=== PATIENT | female | born 1950 | race Caucasian/White ===

== ENCOUNTER 2024-11-27 05:28 | Day surgery (SDC) | payer MEDICARE, OTHER ==
[2024-11-20 14:13] LABS: LEUKOCYTE ESTERASE ,URINE SMALL (Neg); NITRITES, URINE POSITIVE (Neg); OCCULT BLOOD,URINE NEGATIVE (Neg)
[2024-11-20 14:14] LABS: UA COLLECTION TYPE CLN CATCH MIDSTREAM
[2024-11-20 14:15] LABS: MEAN PLATELET VOLUME 8.0 FL (7.4-10.4); PRE OP HEMATOCRIT 47.1 % (35.0-45.0); PRE OP HEMOGLOBIN 15.9 g/dL (12.0-16.0); PRE OP PLATELET COUNT 470 X10'3 (140-440); PRE OP WHITE BLOOD COUNT 10.9 10'3 (4.8-10.8); RED CELL DISTRIBUTION WIDTH 16.3 % (11.5-14.5)
[2024-11-20 14:29] LABS: CREATININE 0.78 MG/DL (0.40-0.90); PRE OP ALT 33 U/L (30-65); PRE OP ANION GAP 9 (8-16); PRE OP AST 22 U/L (10-37); PRE OP BILIRUB, TOTAL 1.4 MG/DL (0.0-1.0); PRE OP GLUCOSE 120 MG/DL (70-104); PRE OP POTASSIUM 4.7 MMOL/L (3.4-5.1); PRE OP SODIUM 140 MMOL/L (135-145); TOTAL CARBON DIOXIDE 27.4 MMOL/L (24-32); eGFR 73 ML/MIN
[2024-11-20 14:40] LABS: MUCUS STRANDS NONE SEEN /LPF (Neg); SQUAMOUS EPITHELIAL CELL,UR NONE SEEN /LPF (FEW)
[2024-11-27] VITALS (10 sets, daily range): BP systolic 113–135; BP diastolic 54–70; PULSE 58–76; RESP 12–16; TEMP 96.7; O2SAT 93–99
[~2024-11-27] VITALS: Ht 165.1 cm; Wt 74.5 kg
[~2024-11-27 05:28] MED LIST: ATOR40TA PO; CARV-49 PO; GLIP5TAB23 PO; HYDR500C2 PO; LEVO125C5 PO; LOSA100T58 PO; MULT-1074 PO; SEMA0.258 SUBCUT; SERT-433 PO
[2024-11-27] MEDS: DOCUMENT DATE & TIME OF BETA-BLOCKER PO ONE (05:30)
[2024-11-27] MEDS ORDERED: bacitracin 15gm ointment TP ONE (06:39)
[2024-11-27] MEDS ORDERED: BUPIVAcaine 2.5mg/ml inj 50ml vial (contains preservative) ONE (06:39)
[2024-11-27] MEDS: ringers solution, lacted 1,000 ML IV SCH (06:49)
[2024-11-27] MEDS: ceFAZolin 2gm/dext,iso 50mL 50 ML IV ONE (06:49)
[2024-11-27] MEDS ORDERED: labetalol 20mg/4ml (5mg/ml) syringe IV PRN (06:50)
[2024-11-27] MEDS ORDERED: fentaNYL/PF 50MCG/1 ML 2ML syringe IV PRN ×2 (06:50)
[2024-11-27] MEDS ORDERED: ondansetron/PF 4mg/2ml inj IV PRN (06:50)
[2024-11-27] MEDS ORDERED: ringers solution, lacted 1,000 ML IV SCH (06:50)
[2024-11-27] MEDS ORDERED: morphine 4 MG/ML inj SYRINge IV PRN (06:50)
[2024-11-27] MEDS ORDERED: hydrALAZINE 20mg/ml inj. IV PRN (06:50)
[2024-11-27] MEDS ORDERED: fentaNYL/PF 50MCG/1 ML 2ML syringe ONE ×2 (07:19→09:36)
[2024-11-27] MEDS ORDERED: acetaminophen 1,000mg/100ml IV 100 ML IV ONE (07:19)
[2024-11-27] MEDS ORDERED: midazolam 1 mg/ML 2ml injection ONE (07:19)
[2024-11-27] MEDS ORDERED: ondansetron/PF 4mg/2ml inj ONE (07:20)
[2024-11-27] MEDS ORDERED: propofol inj 20 ML IV ONE (07:20)
[2024-11-27] MEDS ORDERED: dexamethasone sod phosphate 4mg/ml inj. ONE (07:20)
[2024-11-27] MEDS ORDERED: ROPIVAcaine 0.5% (5mg/ml) 30ml vial ONE (07:20)
[2024-11-27] MEDS ORDERED: LIDOcaine 1%/PF 5ML 10 MG/ML VIAL ONE (07:20)
[2024-11-27] MEDS: BUPIVAcaine/PF 2.5 mg/ml (0.25%) 30ml vial IJ ONE (08:12)
--- NOTE | 2024-11-27 10:19 | OPERATIVE REPORT ---
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 Improved metatarsal parabola p ost joseph osteotomy. Nerve like material in 3rd interspace that did not branch to the digits. Complications None Prosthetics\\Implants used: Peggy Phalinx x2, Peggy Gary plantar plate repair system, 2.0mm cannulated partially threaded screw x2, K-wire x2 Estimated Blood Loss: 10cc Specimen Removed: Left 3rd interspace stump vs. recurrent neuroma vs scar tissue for pathology Description of Procedure: Under mild sedation the patient was brought into the operating room and placed on the operating room table in the supine position. The anesthesia provider initiated general anesthesia. A well padded left ankle tourniquet was applied and the patient's left lower extremity was bumped and padded appropriately. The left lower extremity was scrubbed, prepped and draped in usual aseptic manner. A time out was performed confirming the correct patient, procedures and laterality. 20cc of 0.25% marcaine plain were injected in a local block fashion. The left foot was elevated and the pneumatic left ankle tourniquet was inflated to 250mmHg. Procedure #1: Left 2nd PIPJ arthrodesis Attention was first directed to the dorsal 2nd digit where a curvilinear incis ion was made from the MTPJ to the PIPJ. This was made with a #15 blade and carried down to the level of subcutaneous tissue. Sharp dissection was used to expose the EDL tendon. Care was taken to protect all vital neurovascular structures and any small bleeders were cauterized with electrocautery. A transverse tenotomy was made at the level of the PIPJ and the tendon was dissected proximally to the level of the MTPJ. Sharp dissection was used to expose the head of the proximal phalanx and base of the intermediate phalanx. A saggital saw was used to resect the articular cartilage of the head of the proximal phalanx and base of the intermediate phalanx. These were removed from the surgical site. The surgical site was irrigated with copious amounts of normal saline. The guidewire for the phalinx implant was placed and the phalinx implant was placed using standard technique. Fluoroscopy confirmed adequate position of the implant and 2nd toe with adequate compression of the PIPJ. Procedure #2: Left 3rd PIPJ arthrodesis Attention was first directed to the dorsal 3rd digit where a double semi- elliptical incision was made over the PIPJ. This was made with a #15 blade and carried down to the level of subcutaneous tissue and the ellipse of skin was removed from the surgical site. Sharp dissection was used to expose the EDL tendon. Care was taken to protect all vital neurovascular structures and any small bleeders were cauterized with electrocautery. A transverse tenotomy was made at the level of the PIPJ and the tendon was dissected proximally to the level of the MTPJ. Sharp dissection was used to expose the head of the proximal phalanx and base of the intermediate phalanx. A saggital saw was used to resect the articular cartilage of the head of the proximal phalanx and base of the intermediate phalanx. These were removed from the surgical site. The surgical site was irrigated with copious amounts of normal saline. The guidewire for the phalinx implant was placed and the phalinx implant was placed using standard technique. Fluoroscopy confirmed adequate position of the implant and 2nd toe with adequate compression of the PIPJ. Procedure #3+4: Left 2nd joseph osteotomy and plantar plate repair Attention was then directed to the 2nd MTPJ where a transverse capsulotomy was made. Sharp dissection was used to expose the 2nd metatarsal head. A saggital saw was used to create the joseph osteotomy parallel to the WB surface of the foot. The metatarsal head shifted approximately 3mm proximally. The platntar plate was evaluated and noted to be torn. The [employer] gravity plantar plate fixation system was used to repair the plantar plate, however the pigtail screws broke off, so the suture was loaded on free needles instead. The suture was tied in knots to prevent pullout under the plantar plate. The strands were fun through the guide holes in the proximal phalanx and secured dorsally. The 2nd MTPJ was noted to be in rectus position after that. The excess suture was cut and removed from the surgical site. Two guide wires for the joseph osteotomy fixation were then placed from dorsal to plantar. Fluoroscopy confirmed adequate position. Two peggy 2.0mm partially threaded cannulated screws were then placed across the osteotomy site. The overhanging edge was resected with rongeur dorsally. The guide wires for the hammertoe repairs were then driven across the MTPJs to maintain alignment of the digits and MTPJ Procedure #5: Left 3rd interspace stump vs recurrent neuroma excision Attention was then directed to the dorsal 3rd interspace where a linear incision was made over her previous incision. Care was taken to protect all vital neurovascular structures and any small bleeders were cauterized with electrocautery. A combination of blunt and sharp dissection was carried out to the deep transverse metatarsal ligament which was transected using scissors. A lesion consistent with nerve tissue was noted plantar to this and appeared inflammed, however, it did not branch in the typical fashion of a nerve. It was excised from the surgical site and sent to the lab to be evaluated by pathology for potential stump neuroma vs scar tissue. The proximal border was bovied to prevent recurrence. Care was taken to ensure this was resected proximal to the WB surface. The tourniquet was released and immediate hyperemia was noted to all digits of the left foot. The incisions were irrigated with copious amounts of normal saline. The wires were bent, cut and capped. Final fluoroscopic imaging confirmed adequate alignment and stability of fixation. The incisions were closed in layers using 3-0 vycril for the tendons, 4-0 monocryl for the subcutaneous, and 3-0 nylon for the skin. 20cc additional 0.5% marcaine plain was injected in a local block fashion. The incisions were dressed with betadine soaked adaptic, 4x4 gauze, webril, abd pad, and 4" damien wrap. A CAM boot was placed over the incision. The patient tolerated the procedure and anesthesia well. She was transferred from the operating room to the PACU with vital signs stable and vascular status intact to all digits of the left desmond. She has both written and verbal instructions for post operative recovery and will follow-up with me as scheduled next week. Counts repoted as correct: Yes DIPTI BATISTA DPM Nov 27, 2024 10:18
== END 2024-11-27 11:21 | disposition home or self-care (01) ==
LOC: PAS 05:28
PROVIDERS: ATTEND Student in an Organized Health Care Education/Training Program
DX: M20.42 Other hammer toe(s) (acquired), left foot (principal); G57.62 Lesion of plantar nerve, left lower limb; I10 Essential (primary) hypertension; E11.9 Type 2 diabetes mellitus without complications; E03.9 Hypothyroidism, unspecified; Z87.891 Personal history of nicotine dependence; Z96.651 Presence of right artificial knee joint; Z98.890 Other specified postprocedural states; Z88.8 Allergy status to other drugs, medicaments and biological substances; Z79.899 Other long term (current) drug therapy
CPT/HCPCS: 28080; 28200; 28285; 28308; 36415; 80053; 81001; 82948; 83036; 85025; 87077; 87088; 87186; 88305; A4215; A4618; A6222; A6253; A6402; A6449; A7000; C1713; J0131; J1100; J2250; J2405; J2704; J2795; J3010; J3490; J7030; J7120; Z7506; Z7508; Z7512; Z7610